=== PATIENT | female | born 1955 | race Caucasian/White ===

== ENCOUNTER 2018-10-08 16:00 | Outpatient (CLI) | payer OTHER | END 2018-10-08 16:08 | disposition home or self-care (01) | LOC: LAB 16:00 | DX: N39.0 Urinary tract infection, site not specified (principal); B96.29 Other Escherichia coli [E. coli] as the cause of diseases classified elsewhere ==

== ENCOUNTER 2018-10-24 10:09 | Outpatient (CLI) | payer OTHER | END 2018-10-24 10:14 | disposition home or self-care (01) | LOC: NUCLEAR 10:09 | DX: M81.0 Age-related osteoporosis without current pathological fracture (principal) ==